=== PATIENT | male | born 1965 | race Caucasian/White ===

== ENCOUNTER 2017-01-17 05:48 | Inpatient (IN) ==
[2017-01-17] MEDS ORDERED: Insulin Regular, Human 100 UNIT/ML IV ONE (07:56)
[2017-01-17] MEDS ORDERED: Insulin Regular, Human 100 UNIT/ML IV PRN (07:56)
[2017-01-17] MEDS ORDERED: *HR* Dextrose 50 % in Water (Syg) 50 ML SYRINGE IVP PRN ×2 (07:56→23:35)
[2017-01-17 07:59] LABS: INR 1.1; Prothrombin Time 12.4 Seconds (9.4-12.1)
[2017-01-17] MEDS ORDERED: Naloxone 0.4 MG/ML INJ IVP PRN (07:59)
[2017-01-17] MEDS ORDERED: 0.9 % Sodium Chloride 1,000 ML IVC SCH (08:00)
[2017-01-17] MEDS ORDERED: Insulin Human Regular 100 UNIT in 0.9 % Sodium Chloride 100 ML IVC SCH (08:00)
[2017-01-17 08:02] LABS: Activated Partial Thrombo Time 27.2 Seconds (26.0-36.0)
[2017-01-17] MEDS ORDERED: 0.9 % Sodium Chloride 1,000 ML ONE (08:02)
[2017-01-17 08:10] LABS: Phosphorous 6.2 mg/dL (2.3-4.7)
--- NOTE | 2017-01-17 08:58 | Pulmonology History & Physical ---
<Moe Pompa M - Last Filed: 01/17/17 12:21> Date of Encounter: 01/17/17 History of Present Illness HPI: Mr. Rodríguez is a 52 year old male Medications and Allergies Atorvastatin Calcium [Lipitor] 20 mg PO DAILY 09/06/16 [History] Divalproex (12 HR) [Depakote (12 HR)] 500 mg PO BID 09/06/16 [History] Insulin ASPART [NovoLOG] 7 - 13 unit SQ TIDWM 09/06/16 [History] Insulin Glargine [Lantus] 20 units SQ DAILY 09/06/16 [History] Levothyroxine [Synthroid] 50 mcg PO DAILY 09/06/16 [History] Aspirin [Ecotrin] 325 mg PO QAM 01/17/17 [History] Quinapril HCl [Accupril] 5 mg PO QAM 01/17/17 [History] 3 Allergy/AdvReac Type Severity Reaction Status Date / Time No Known Allergies Allergy Verified 01/17/17 03:10 All Systems: A 10-system review of systems was performed and is negative for pertinent findings except as documented above in the HPI. Physical Examination Vital Signs: Vital Signs, Last 4 Hours Temp Pulse Resp BP Pulse Ox 01/17/17 12:07 97.0 F L 01/17/17 11:00 102 12 94/57 100 01/17/17 10:00 111 13 89/64 100 01/17/17 09:00 113 10 87/79 93 Results - Laboratory Findings CBC and BMP: 01/17/17 08:18 01/17/17 10:52 PT/INR, D-dimer PT 12.4 Seconds (9.4-12.1) H 01/17/17 07:47 Abnormal lab findings: Abnormal lab results WBC 12.9 K/mcL (4.3-11.1) H 01/17/17 08:18 RBC 3.65 M/mcL (4.19-5.50) L 01/17/17 08:18 Hgb 10.5 g/dL (12.9-16.9) L 01/17/17 08:18 Hct 35.5 % (37.5-50.1) L 01/17/17 08:18 MCHC 29.6 g/dL (31.6-35.5) L 01/17/17 08:18 Neutrophils # 10.4 K/mcL (1.6-8.9) H 01/17/17 08:18 PT 12.4 Seconds (9.4-12.1) H 01/17/17 07:47 VBG pH 6.98 pH Units (7.32-7.42) L* 01/17/17 09:31 VBG pCO2 30 mmHg (41-51) L 01/17/17 09:31 VBG HCO3 7 mEq/L (21-27) L 01/17/17 09:31 Carbon Dioxide 6 mEq/L (19-29) L* 01/17/17 07:47 BUN 63 mg/dL (8-26) H 01/17/17 07:47 Creatinine 3.44 mg/dL (0.72-1.25) H 01/17/17 07:47 Est GFR ( Amer) 23 (> 60) L 01/17/17 07:47 Est GFR (Non-Af Amer) 19 (> 60) L 01/17/17 07:47 Glucose 693 mg/dL (70-99) H* 01/17/17 10:52 Hemoglobin A1c 11.1 % (-5.6) H 01/17/17 07:47 Calculated Osmolality 357 (280-300) H 01/17/17 07:47 Calcium 8.0 mg/dL (8.6-10.8) L 01/17/17 07:47 Phosphorus 6.2 mg/dL (2.3-4.7) H 01/17/17 07:47 Magnesium 3.0 mg/dL (1.6-2.6) H 01/17/17 07:47 Albumin 3.1 g/dL (3.5-5.0) L 01/17/17 07:47 Albumin/Globulin Ratio 1.0 (1.1-2.2) L 01/17/17 07:47 - Attending Attestation I examined this patient and my medical decision-making was reviewed with the Resident Physician. I agree with the documented findings, disposition and treatment plan as described except to the extent set forth below. Patient seen and examined. Labs, radiology, chart personally reviewed. Agree with resident's history and physical, assessment, plan with following comments: PAYROLL SERVICES ANALYST: Patient follows commands, patient with history of seizure and with his electrolytes abnormalities that is even at higher risk of seizure happened. Pulmonary: Acceptable oxygenation and ventilation Cardiovascular: stable GI: Nutrition per dietary and GI prophylaxis per routine Heme: DVT prophylaxis per routine ID: There is no evidence of infection. Renal; urine out put and renal funtion reviewed. Patient with electrolytes abnormality secondary to DKA and severe metabolic an ion gap Acidosis and patient with dehydration. Patient needs fluid resuscitation and treatment according to the DKA protocol. I will give patient more IV fluid and clinically he has hypovolemia. Endorcine: blood glucose is monitored. Patient needs diabetic education and continue insulin drip for now. Lines: all lines checked and no evidence of infections Skin: skin care to prevent pressure ulcers per nursing routine care Patient with severe metabolic and electrolyte derangement and needs to be treated in intensive care unit due to potential serious complications from the electrolytes abnormalities. I spent 35 min of Critical Care time with this patient. It involved decision making of high complexity to assess, manipulate, and support vital organ system failure and/or to prevent further life threatening deterioration of the patient' s condition. The time involved in the performance of separately reportable procedures was not counted toward critical care time. <Fred Monet - Last Filed: 01/17/17 14:23> Date of Encounter: 01/17/17 Time of Encounter: 08:45 Assessment and Plan (1) DKA (diabetic ketoacidoses) Current visit: No Status: Acute - With glucose 1582, pH 7.00, anion gap > 35 on initial presentation. - Likely secondary to dehydration from poor oral intake and/or non-compliance with insulin use. - Improves as glucose 977 and anion gap 28 on repeat. - Continue IV insulin drip and IV fluid per DKA protocol. - NPO for now. - Monitor closely. Qualifiers: Diabetes mellitus type: type 1 Diabetes mellitus complication detail: without coma Qualified Code(s): E10.10 - Type 1 diabetes mellitus with ketoacidosis without coma (2) Acute renal failure Current visit: No Status: Acute - SCr 4.21 / eGFR 15 on initial presentation (baseline SCR 1.11 / eGFR > 60 on ). - Likely pre-renal with dehydration associated with DKA. - Improves as Scr 3.44 / eGFR 19 on repeat. - Continue hydration with IV fluid. - Avoid nephrotoxin. - Continue to monitor renal function and electrolytes closely. Qualifiers: Acute renal failure type: unspecified Qualified Code(s): N17.9 - Acute kidney failure, unspecified (3) Hyperkalemia Current visit: No Status: Acute - K 8.0 on initial presentation. - Likely secondary to current DKA and CASSANDRA. - Improves as K 4.2 on repeat. - Continue hydration with IV fluid and close monitoring. (4) Diabetes mellitus type 1 Current visit: Yes Status: Chronic - With insulin on home medication list. - Poorly controlled given Hgb A1C 11.1. Qualifiers: Diabetes mellitus complication status: with unspecified complications Qualified Code(s): E10.8 - Type 1 diabetes mellitus with unspecified complications (5) Hypothyroidism Current visit: Yes Status: Acute - Will check thyroid cascade. - Continue home dose Synthroid. Qualifiers: Hypothyroidism type: acquired Qualified Code(s): E03.9 - Hypothyroidism, unspecified (6) Hypertension Current visit: Yes Status: Chronic - Hold home dose Quinapril given current hypotension. Qualifiers: Hypertension type: essential hypertension Qualified Code(s): I10 - Essential (primary) hypertension (7) History of seizure disorder Current visit: Yes Status: Chronic - History of multiple brain surgeries including LIGHT BULB ASSEMBLER shunt. - Will resume home dose Depakote. (8) Bedbug bite Current visit: No Status: Acute Qualifiers: Encounter type: initial encounter Qualified Code(s): W57.XXXA - Bitten or stung by nonvenomous insect and other nonvenomous arthropods, initial encounter (9) DVT prophylaxis Current visit: Yes Status: Acute - Start SQ heparin. GI Prophylaxis: Start PPI. History of Present Illness Chief complaint: "feeling sick" HPI: Mr. Rodríguez is a 52 year old male with PMH of type I diabetes on chronic insulin, seizure disorder with history of multiple brain surgeries including LIGHT BULB ASSEMBLER shunt and MRDD. Patient presented to [facility] ED for "feeling sick" including nausea and nonproductive cough for past few days. Patient denies fever, chills, chest pain , shortness of breath, abdominal pain. Patient was noted to have WBC 15.3, VBG pH 7.00, K 8.0, bicarbonate < 5 with anion gap > 35, SCr 4.21 and glucose 1582. Patient is admitted to [facility] ICU for severe DKA. Past Med Surg Social Fam HX - Past Medical History Medical history: diabetes (Type I), seizures, other (MRDD) Psychiatric history: no psych history - Past Surgical History Surgical History: other (Multiple brain surgeries including LIGHT BULB ASSEMBLER shunt) - Social History Smoking Status: Never smoker Smokeless Tobacco Status: No Alcohol use: none Drug use: none - Family History Father Hx Family Cardiac Disorders: Yes Hx Family Respiratory Disorders: Yes (Asthma) Mother Hx Family Cancer: Yes All Systems: A 10-system review of systems was performed and is negative for pertinent findings except as documented above in the HPI. - Constitutional Constitutional: anorexia, no chills, no fever(s) - EENT Eyes: no loss of peripheral vision Ears: no decreased hearing Nose, mouth and throat: no dysphagia - Cardiovascular Cardiovascular: no chest pain, no diaphoresis, no edema - Respiratory Respiratory: cough, no dyspnea, no excessive phlegm production, no change in phlegm color - Gastrointestinal Gastrointestinal: nausea, no abdominal pain, no diarrhea, no vomiting - Genitourinary Genitourinary: no difficulty urinating, no dysuria, no hematuria - Musculoskeletal Musculoskeletal: no arthralgias, no myalgias - Integumentary Integumentary: no erythema, no rash - Neurological Neurological: no focal weakness, no numbness, no tingling - Hematologic/Lymphatic Hematologic/Lymphatic: no easy bleeding, no easy bruising Physical Examination General appearance: no acute distress Eyes: nonicteric ENT: oropharynx dry Neck: supple Effort: normal Inspection: normal Auscultation: bilateral: clear Cardiovascular: other (Tachycardia) Gastrointestinal: normoactive bowel sounds, soft, non-tender Integumentary: normal Extremities: no cyanosis, no edema Musculoskeletal: no deformities normal mental status, non-focal exam mood appropriate, affect normal Results - Laboratory Findings CBC and BMP: 01/17/17 08:18 01/17/17 12:05 PT/INR, D-dimer PT 12.4 Seconds (9.4-12.1) H 01/17/17 07:47 Abnormal lab findings: Abnormal lab results PT 12.4 Seconds (9.4-12.1) H 01/17/17 07:47 Phosphorus 6.2 mg/dL (2.3-4.7) H 01/17/17 07:47 Magnesium 3.0 mg/dL (1.6-2.6) H 01/17/17 07:47
[2017-01-17 09:15] LABS: Basophils % 0.2 %; Hematocrit 35.5 % (37.5-50.1); Hemoglobin 10.5 g/dL (12.9-16.9); Immature Granulocytes % 0.9 % (0-4); Immature Platelets 4.5 % (1.1-6.1); Lymphocytes # 1.1 K/mcL (0.6-4.6); Lymphocytes % 8.8 %; Mean Corpuscular HGB Conc 29.6 g/dL (31.6-35.5); Mean Corpuscular Hemoglobin 28.8 pg (28.0-33.3); Mean Corpuscular Volume 97.3 fL (83.0-100.0); Mean Platelet Volume 11.3 fL (9.4-12.4); Monocytes # 1.3 K/mcL (0.0-1.3); Monocytes % 9.7 %; Neutrophils # 10.4 K/mcL (1.6-8.9); Platelet Count 229 K/mcL (140-400); Red Blood Count 3.65 M/mcL (4.19-5.50); Red Cell Distribution Width 13.8 % (11.5-14.5); Segmented Neutrophils % 80.4 %
[2017-01-17 09:35] LABS: VBG HCO3 7 mEq/L (21-27); VBG PCO2 30 mmHg (41-51); VBG PH 6.98 pH Units (7.32-7.42); VBG PO2 44 mmHg (25-50)
[2017-01-17 09:38] LABS: Hemoglobin A1C 11.1 %
[2017-01-17 09:43] LABS: VBG Ionized Calcium 1.16 mmol/L (1.15-1.35)
[2017-01-17 10:24] LABS: Albumin 3.1 g/dL (3.5-5.0); Bilirubin,Total 0.5 mg/dL (0.2-1.2); Globulin 3.1 g/dL (2.4-3.5); Potassium 4.2 mEq/L (3.5-4.5); Total Protein 6.2 g/dL (6.0-8.3)
[2017-01-17] MEDS: 0.45 % Sodium Chloride w/KCl 20 MEQ/1,000 ML MLS IVC SCH ×2 (13:34→18:07)
--- NOTE | 2017-01-17 14:42 | General Surgery Consult Note ---
Date of Encounter: 01/17/17 Time of Encounter: 14:41 Assessment and Plan (1) LGI bleed Current Visit: Yes Status: Acute 52M with LGIB complicated by multiple falls, weakness; currently hemodynamically stable - NPO - IVF - trend h/h - hold anticoagulation - transfuse per ICU protocol - once more lucid, or after talking with POA, will discuss concerning EGD and C- scope - no acute surgery at present History of Present Illness Consult date: 01/17/17 Reason for consult: other (lower GI bleeding) History of present illness: 52M h/o afib on xarelto?, hypothyroidism, HLD, hemorrhoids who presents with LGIB. All history obtained from . The patient reportedly has had multiple episodes of falling 2/2 weakness, especially in his legs. No reports of chest pain nor shortness of breath. ~ 1-2 days prior to admission the patient had a large amount of blood in his stool. He was subsequently brought to the ED for further evaluation. Past Med Surg Social Fam HX - Past Medical History Medical history: diabetes (Type I), seizures, other (MRDD) Psychiatric history: no psych history - Past Surgical History Surgical History: other (Multiple brain surgeries including SHOE ASSOCIATE shunt) - Social History Smoking Status: Never smoker Smokeless Tobacco Status: No Alcohol use: none Drug use: none - Family History Father Hx Family Cardiac Disorders: Yes Hx Family Respiratory Disorders: Yes (Asthma) Mother Hx Family Cancer: Yes Medications and Allergies Atorvastatin Calcium [Lipitor] 20 mg PO DAILY 09/06/16 [History] Divalproex (12 HR) [Depakote (12 HR)] 500 mg PO BID 09/06/16 [History] Insulin ASPART [NovoLOG] 7 - 13 unit SQ TIDWM 09/06/16 [History] Insulin Glargine [Lantus] 20 units SQ DAILY 09/06/16 [History] Levothyroxine [Synthroid] 50 mcg PO DAILY 09/06/16 [History] Aspirin [Ecotrin] 325 mg PO QAM 01/17/17 [History] Quinapril HCl [Accupril] 5 mg PO QAM 01/17/17 [History] 3 Allergy/AdvReac Type Severity Reaction Status Date / Time No Known Allergies Allergy Verified 01/17/17 03:10 Review of Systems All systems PM: A 10-system review of systems was performed and is negative for pertinent findings except as documented above in the HPI. General Surgery Exam Initial Vital Signs Temp Pulse Resp BP Pulse Ox 96.0 F L 113 19 70/44 100 01/17/17 07:30 01/17/17 07:30 01/17/17 07:30 01/17/17 07:30 01/17/17 07:30 - General physical appearance other (minimally responsive) - ENT normocephalic - Neck no lymphadectomy - Respiratory normal expansion, normal respiratory effort - Cardiovascular Cardiovascular exam: Present: RRR - Abdomen Abdomen general surgery: Present: soft, non tender - Genitourinary Present: normal penis with no external lesions - Rectum Rectum: Present: normal sphincter tone, no hemorrhoids, no tenderness, no masses , no bleeding - Integumentary Integumentary general surgery: Present: warm and dry - Neurologic Present: CN 2-12 grossly intact (GCS ~ 11 (E:3, V:3, M:5) ) - Psychiatric Psychiatric general surgery: Present: other Exam Initial Vital Signs Temp Pulse Resp BP Pulse Ox 96.0 F L 113 19 70/44 100 01/17/17 07:30 01/17/17 07:30 01/17/17 07:30 01/17/17 07:30 01/17/17 07:30 Results - Labs 01/17/17 08:18 01/17/17 12:05 Abnormal lab results WBC 12.9 K/mcL (4.3-11.1) H 01/17/17 08:18 RBC 3.65 M/mcL (4.19-5.50) L 01/17/17 08:18 Hgb 10.5 g/dL (12.9-16.9) L 01/17/17 08:18 Hct 35.5 % (37.5-50.1) L 01/17/17 08:18 MCHC 29.6 g/dL (31.6-35.5) L 01/17/17 08:18 Neutrophils # 10.4 K/mcL (1.6-8.9) H 01/17/17 08:18 PT 12.4 Seconds (9.4-12.1) H 01/17/17 07:47 VBG pH 6.98 pH Units (7.32-7.42) L* 11/26/17 09:31 VBG pCO2 30 mmHg (41-51) L 01/17/17 09:31 VBG HCO3 7 mEq/L (21-27) L 01/17/17 09:31 Carbon Dioxide 6 mEq/L (19-29) L* 01/17/17 07:47 BUN 63 mg/dL (8-26) H 01/17/17 07:47 Creatinine 3.44 mg/dL (0.72-1.25) H 01/17/17 07:47 Est GFR ( Amer) 23 (> 60) L 01/17/17 07:47 Est GFR (Non-Af Amer) 19 (> 60) L 01/17/17 07:47 Glucose 604 mg/dL (70-99) H* 01/17/17 12:05 Hemoglobin A1c 11.1 % (-5.6) H 01/17/17 07:47 Calculated Osmolality 357 (280-300) H 01/17/17 07:47 Calcium 8.0 mg/dL (8.6-10.8) L 01/17/17 07:47 Phosphorus 6.2 mg/dL (2.3-4.7) H 01/17/17 07:47 Magnesium 3.0 mg/dL (1.6-2.6) H 01/17/17 07:47 Albumin 3.1 g/dL (3.5-5.0) L 01/17/17 07:47 Albumin/Globulin Ratio 1.0 (1.1-2.2) L 01/17/17 07:47 Diabetes panel 01/17/17 01/17/17 01/17/17 Range/Units 07:47 07:47 10:52 Sodium 140 D (136-145) mEq/L Potassium 4.2 D (3.5-4.5) mEq/L Chloride 106 D (98-109) mEq/L Carbon Dioxide 6 L* (19-29) mEq/L BUN 63 H (8-26) mg/dL Creatinine 3.44 H (0.72-1.25) mg/dL Glucose 977 H* 693 H* (70-99) mg/dL Hemoglobin A1c 11.1 H ( - 5.6) % Calcium 8.0 L (8.6-10.8) mg/dL AST 11 (5-34) Units/L ALT 13 (0-55) Units/L Alkaline Phosphatase 61 (38-126) Units/L Albumin 3.1 L (3.5-5.0) g/dL 01/17/17 Range/Units 12:05 Sodium (136-145) mEq/L Potassium (3.5-4.5) mEq/L Chloride (98-109) mEq/L Carbon Dioxide (19-29) mEq/L BUN (8-26) mg/dL Creatinine (0.72-1.25) mg/dL Glucose 604 H* (70-99) mg/dL Hemoglobin A1c ( - 5.6) % Calcium (8.6-10.8) mg/dL AST (5-34) Units/L ALT (0-55) Units/L Alkaline Phosphatase (38-126) Units/L Albumin (3.5-5.0) g/dL Calcium panel 01/17/17 01/17/17 Range/Units 07:47 07:47 Calcium 8.0 L (8.6-10.8) mg/dL Phosphorus 6.2 H (2.3-4.7) mg/dL Albumin 3.1 L (3.5-5.0) g/dL Pituitary panel 01/17/17 01/17/17 01/17/17 Range/Units 07:47 10:52 12:05 Sodium 140 D (136-145) mEq/L Potassium 4.2 D (3.5-4.5) mEq/L Chloride 106 D (98-109) mEq/L Carbon Dioxide 6 L* (19-29) mEq/L BUN 63 H (8-26) mg/dL Creatinine 3.44 H (0.72-1.25) mg/dL Glucose 977 H* 693 H* 604 H* (70-99) mg/dL Calcium 8.0 L (8.6-10.8) mg/dL Adrenal panel 01/17/17 01/17/17 01/17/17 Range/Units 07:47 10:52 12:05 Sodium 140 D (136-145) mEq/L Potassium 4.2 D (3.5-4.5) mEq/L Chloride 106 D (98-109) mEq/L Carbon Dioxide 6 L* (19-29) mEq/L BUN 63 H (8-26) mg/dL Creatinine 3.44 H (0.72-1.25) mg/dL Glucose 977 H* 693 H* 604 H* (70-99) mg/dL Calcium 8.0 L (8.6-10.8) mg/dL Total Bilirubin 0.5 (0.2-1.2) mg/dL AST 11 (5-34) Units/L ALT 13 (0-55) Units/L Alkaline Phosphatase 61 (38-126) Units/L Albumin 3.1 L (3.5-5.0) g/dL All other labs normal. Consult Discharge Plan - Plan Referrals: NONE,PCP [Primary Care Provider] -
[2017-01-17] MEDS: *HR* Heparin 5,000 UNIT/ML VIAL SQ SCH (18:08)
[2017-01-17] MEDS ORDERED: Insulin DETEMIR 100 UNIT/ML X5UNITS SQ ONE (18:54)
[2017-01-17 19:28] LABS: Calcium 7.9 mg/dL (8.6-10.8); Potassium 4.4 mEq/L (3.5-4.5)
[2017-01-17] MEDS: Divalproex (12 HR) 500 MG TABLET PO SCH (21:00)
[2017-01-17 22:15] LABS: Calcium 8.3 mg/dL (8.6-10.8); Potassium 4.6 mEq/L (3.5-4.5)
[2017-01-17] MEDS ORDERED: D5% in Water 1,000 ML IVC PRN (23:35)
[2017-01-17] MEDS ORDERED: Dextrose Gel 15 GM PO PRN ×2 (23:35)
[2017-01-18] MEDS: 0.45 % Sodium Chloride w/KCl 20 MEQ/1,000 ML MLS IVC SCH ×3 (00:36→04:09)
[2017-01-18] MEDS: D5% in 0.45% NACL w KCl 10 MEQ/1,000 ML MLS IVC SCH ×2 (00:36→03:14)
[2017-01-18 03:45] LABS: Basophils % 0.3 %; Eosinophils # 0.2 K/mcL (0.0-0.6); Eosinophils % 2.2 %; Hematocrit 32.7 % (37.5-50.1); Hemoglobin 10.9 g/dL (12.9-16.9); Immature Granulocytes % 0.4 % (0-4); Lymphocytes # 1.4 K/mcL (0.6-4.6); Lymphocytes % 15.5 %; Mean Corpuscular HGB Conc 33.3 g/dL (31.6-35.5); Mean Corpuscular Hemoglobin 29.1 pg (28.0-33.3); Mean Platelet Volume 10.6 fL (9.4-12.4); Monocytes # 1.3 K/mcL (0.0-1.3); Monocytes % 14.3 %; Platelet Count 168 K/mcL (140-400); Red Blood Count 3.74 M/mcL (4.19-5.50); Red Cell Distribution Width 14.9 % (11.5-14.5); Segmented Neutrophils % 67.3 %
[2017-01-18 03:51] LABS: Mean Corpuscular Volume 87.4 fL (83.0-100.0)
[2017-01-18 04:08] LABS: Calcium 8.7 mg/dL (8.6-10.8); Magnesium 2.4 mg/dL (1.6-2.6); Potassium 4.4 mEq/L (3.5-4.5)
[2017-01-18 04:20] LABS: Phosphorous 2.3 mg/dL (2.3-4.7)
[2017-01-18 05:05] LABS: Thyroid Stimulating Hormone 13.994 mcIU/mL (0.350-4.840)
[2017-01-18] MEDS: *HR* Heparin 5,000 UNIT/ML VIAL SQ SCH ×2 (05:05→18:22)
[2017-01-18] MEDS ORDERED: Insulin LISPRO 300 UNITS/3 ML VIAL SQ SCH ×2 (07:30→08:00)
[2017-01-18] MEDS: Divalproex (12 HR) 500 MG TABLET PO SCH ×2 (08:02→22:48)
[2017-01-18] MEDS ORDERED: Aspirin Enteric Coated 325 MG Tablet PO SCH (09:00)
[2017-01-18] MEDS ORDERED: Pantoprazole 40 MG VIAL IVP SCH (09:00)
--- NOTE | 2017-01-18 09:29 | Pulmonology Progress Note ---
<Patricia Chavez Aydin - Last Filed: 01/18/17 17:27> Date of Encounter: 01/18/17 Time of Encounter: 09:28 Assessment and Plan (1) DKA (diabetic ketoacidoses) Current Visit: Yes Status: Acute Patient with a glucose of 1582, pH 7.0, and anion gap of greater than 35 on initial presentation. -Patient was hydrated and resuscitated. -The anion gap was 7 this morning. -DC IV insulin drip and IV fluid per DKA protocol. -Advance diet as tolerated, start detemir 20 units every at bedtime which is an increase from his at home dose. -10 units of lispro before meals plus sliding scale coverage. -Transferred to [facility]. Qualifiers: Diabetes mellitus type: type 1 Diabetes mellitus complication detail: without coma Qualified Code(s): E10.10 - Type 1 diabetes mellitus with ketoacidosis without coma (2) Acute renal failure Current Visit: Yes Status: Acute Improving with creatinine of 1.76 today down from 3.44 yesterday. -Continue IV fluid hydration. -Avoid nephrotoxins. -Continue to monitor renal function and electrolytes closely. -Continue holding DANIEL-I as patient's blood pressure has been borderline low. Qualifiers: Acute renal failure type: unspecified Qualified Code(s): N17.9 - Acute kidney failure, unspecified (3) Hyperkalemia Current Visit: Yes Status: Acute Resolved. -Continue hydration with IV fluids and close monitoring with follow-up BMP in the morning. (4) Bed bug bite Current Visit: Yes Status: Acute Appropriate contact precautions. Qualifiers: Encounter type: initial encounter Qualified Code(s): W57.XXXA - Bitten or stung by nonvenomous insect and other nonvenomous arthropods, initial encounter (5) Diabetes mellitus type 1 Current Visit: Yes Status: Chronic Patient's hemoglobin A1c 11.1. -Patient with right-sided blindness as well as chronic renal failure. -Insulin adjustments as per above. Qualifiers: Diabetes mellitus complication status: with unspecified complications Qualified Code(s): E10.8 - Type 1 diabetes mellitus with unspecified complications (6) Hypothyroidism Current Visit: Yes Status: Acute Continue home dose Synthroid. Qualifiers: Hypothyroidism type: acquired Qualified Code(s): E03.9 - Hypothyroidism, unspecified (7) Hypertension Current Visit: Yes Status: Chronic Daniel inhibitor quinapril being held due to patient's kidney injury and its borderline hypotension. -Resume primary team once transfer out of the ICU. Qualifiers: Hypertension type: essential hypertension Qualified Code(s): I10 - Essential (primary) hypertension (8) History of seizure disorder Current Visit: Yes Status: Chronic -Patient with history of multiple brain surgeries including LINE THERAPIST shunt. -Resume home dose of Depakote. (9) DVT prophylaxis Current Visit: Yes Status: Acute Subcutaneous heparin. Subjective Principal diagnosis: DKA Interval history: Mr. Sullivan is a 52-year-old male admitted for diabetic ketoacidosis. His gap has resolved. Patient's insulin drip has been discontinued. He is handling by mouth nutrition and hydration. He has no complaints this morning. He is stable for transfer to [address] [place] [address]. Objective PUL Vital signs: Last Vital Signs Temp 99.8 F H 01/18/17 08:00 Pulse 86 01/18/17 08:00 Resp 20 01/18/17 08:00 BP 95/62 01/18/17 08:00 Pulse Ox 100 01/18/17 09:00 General appearance: no acute distress, alert Eyes: nonicteric ENT: oropharynx moist Neck: supple Auscultation: bilateral: clear Cardiovascular: regular rate and rhythm Gastrointestinal: normoactive bowel sounds Integumentary: normal Extremities: no edema, no clubbing, pink and warm Gait: normal gait other (Patient with bilateral nystagmus, right eye worse than left.) Results - Laboratory Findings CBC and BMP: 01/18/17 03:21 01/18/17 03:21 PT/INR, D-dimer PT 12.4 Seconds (9.4-12.1) H 01/17/17 07:47 Abnormal lab findings: Abnormal lab results RBC 3.74 M/mcL (4.19-5.50) L 01/18/17 03:21 Hgb 10.9 g/dL (12.9-16.9) L 01/18/17 03:21 Hct 32.7 % (37.5-50.1) L 01/18/17 03:21 RDW 14.9 % (11.5-14.5) H 01/18/17 03:21 PT 12.4 Seconds (9.4-12.1) H 01/17/17 07:47 VBG pH 6.98 pH Units (7.32-7.42) L* 01/17/17 09:31 VBG pCO2 30 mmHg (41-51) L 01/17/17 09:31 VBG HCO3 7 mEq/L (21-27) L 01/17/17 09:31 Sodium 147 mEq/L (136-145) H 01/18/17 03:21 Chloride 118 mEq/L (98-109) H 01/18/17 03:21 BUN 33 mg/dL (8-26) H 01/18/17 03:21 Creatinine 1.76 mg/dL (0.72-1.25) H 01/18/17 03:21 Est GFR ( Amer) 49 (> 60) L 01/18/17 03:21 Est GFR (Non-Af Amer) 41 (> 60) L 01/18/17 03:21 POC Glucose 115 (58-89) H 01/18/17 00:29 Hemoglobin A1c 11.1 % (-5.6) H 01/17/17 07:47 Calculated Osmolality 310 (280-300) H 01/18/17 03:21 Albumin 3.1 g/dL (3.5-5.0) L 01/17/17 07:47 Albumin/Globulin Ratio 1.0 (1.1-2.2) L 01/17/17 07:47 TSH 13.994 mcIU/mL (0.350-4.840) H 01/18/17 03:21 - Clinical Findings Intake & Output: Intake & Output 01/17/17 01/18/17 01/18/17 23:59 07:59 15:59 Intake Total 2019.4 / 2019.4 720 / 720 Output Total 350 / 350 450 / 450 175 / 175 Balance 1669.4 / 1669.4 -450 / -450 545 / 545 Weight 69.7 kg Consult Discharge Plan - Plan Referrals: NONE,PCP [Primary Care Provider] - <Esther Ferreira - Last Filed: 01/18/17 19:55> Date of Encounter: 01/18/17 Objective PUL Vital signs: Last Vital Signs Temp 98.0 F 01/18/17 16:00 Pulse 82 01/18/17 16:36 Resp 16 01/18/17 16:36 BP 87/52 01/18/17 16:36 Pulse Ox 95 01/18/17 16:36 Results - Laboratory Findings CBC and BMP: 01/18/17 03:21 01/18/17 03:21 PT/INR, D-dimer PT 12.4 Seconds (9.4-12.1) H 01/17/17 07:47 Abnormal lab findings: Abnormal lab results RBC 3.74 M/mcL (4.19-5.50) L 01/18/17 03:21 Hgb 10.9 g/dL (12.9-16.9) L 01/18/17 03:21 Hct 32.7 % (37.5-50.1) L 01/18/17 03:21 RDW 14.9 % (11.5-14.5) H 01/18/17 03:21 PT 12.4 Seconds (9.4-12.1) H 01/17/17 07:47 VBG pH 6.98 pH Units (7.32-7.42) L* 01/17/17 09:31 VBG pCO2 30 mmHg (41-51) L 01/17/17 09:31 VBG HCO3 7 mEq/L (21-27) L 01/17/17 09:31 Sodium 147 mEq/L (136-145) H 01/18/17 03:21 Chloride 118 mEq/L (98-109) H 01/18/17 03:21 BUN 33 mg/dL (8-26) H 01/18/17 03:21 Creatinine 1.76 mg/dL (0.72-1.25) H 01/18/17 03:21 Est GFR ( Amer) 49 (> 60) L 01/18/17 03:21 Est GFR (Non-Af Amer) 41 (> 60) L 01/18/17 03:21 POC Glucose 115 (58-89) H 01/18/17 00:29 Hemoglobin A1c 11.1 % (-5.6) H 01/17/17 07:47 Calculated Osmolality 310 (280-300) H 01/18/17 03:21 Albumin 3.1 g/dL (3.5-5.0) L 01/17/17 07:47 Albumin/Globulin Ratio 1.0 (1.1-2.2) L 01/17/17 07:47 TSH 13.994 mcIU/mL (0.350-4.840) H 01/18/17 03:21 - Clinical Findings Intake & Output: Intake & Output 01/18/17 01/18/17 01/18/17 07:59 15:59 23:59 Intake Total 720 / 720 Output Total 450 / 450 275 / 275 Balance -450 / -450 445 / 445 Weight 69.7 kg 69.3 kg - Attending Attestation I saw the patient with the resident agree with History and Physical exam findings. Labs and Radiology were reviewed PROCESS DEVELOPMENT ENGINEER: Patient is conscious oriented x3 following commands NECK : No JVD appreciated Pulmonary : Patient doesnt have any acute pulmonary issues Cardiac : Volume depleted secondary to DKA , volume repleted , patient BP is borderline Nutrition/GI: Patient is on Diabetic regular diet Renal : CASSANDRA secondary to Volume repletion improving after volume repletion Heme onc : No acute issues Endo: Diabetic ketoacidosis Anion gap closed twice changing to Long acting insulin , pre meal insulin and sliding scale Musculo skeletal / skin issues : No acute issues Disposition : Transfer to General medical floor report called to admitting hospitalist . Code status: Full Code
[2017-01-18] MEDS ORDERED: Dextrose Gel 15 GM PO PRN ×2 (10:07)
[2017-01-18] MEDS ORDERED: D5% in Water 1,000 ML IVC PRN (10:07)
[2017-01-18] MEDS ORDERED: *HR* Dextrose 50 % in Water (Syg) 50 ML SYRINGE IVP PRN (10:07)
[2017-01-18] MEDS ORDERED: Naloxone 0.4 MG/ML INJ IVP PRN (10:07)
[2017-01-18] MEDS: Insulin LISPRO 300 UNITS/3 ML VIAL SQ SCH ×5 (12:19→22:55)
[2017-01-18] MEDS ORDERED: Insulin DETEMIR 100 UNIT/ML X5UNITS SQ SCH ×2 (21:00)
[2017-01-19] MEDS ORDERED: 0.9 % Sodium Chloride 250 ML IVC ONE (01:03)
[2017-01-19] MEDS ORDERED: 0.9 % Sodium Chloride 250 ML IVC PRN (02:40)
[2017-01-19] MEDS ORDERED: 0.9 % Sodium Chloride 250 ML ONE (02:48)
[2017-01-19] MEDS: Insulin LISPRO 300 UNITS/3 ML VIAL SQ SCH ×7 (06:30→17:21)
[2017-01-19] MEDS: *HR* Heparin 5,000 UNIT/ML VIAL SQ SCH ×2 (06:34→17:23)
[2017-01-19 07:46] LABS: Basophils % 0.5 %; Eosinophils # 0.2 K/mcL (0.0-0.6); Eosinophils % 2.4 %; Hematocrit 28.6 % (37.5-50.1); Hemoglobin 9.8 g/dL (12.9-16.9); Immature Granulocytes % 0.3 % (0-4); Lymphocytes # 2.2 K/mcL (0.6-4.6); Lymphocytes % 33.3 %; Mean Corpuscular HGB Conc 34.3 g/dL (31.6-35.5); Mean Corpuscular Hemoglobin 29.5 pg (28.0-33.3); Mean Corpuscular Volume 86.1 fL (83.0-100.0); Mean Platelet Volume 10.6 fL (9.4-12.4); Monocytes # 0.6 K/mcL (0.0-1.3); Monocytes % 9.8 %; Neutrophils # 3.5 K/mcL (1.6-8.9); Platelet Count 119 K/mcL (140-400); Red Blood Count 3.32 M/mcL (4.19-5.50); Red Cell Distribution Width 15.7 % (11.5-14.5); Segmented Neutrophils % 53.7 %
[2017-01-19 08:15] LABS: BUN/Creatinine Ratio 12 (6-26); Calcium 8.1 mg/dL (8.6-10.8); Carbon Dioxide 22 mEq/L (19-29); Chloride 111 mEq/L (98-109); Glucose 119 mg/dL (70-99); Osmolality,Calculated 295 (280-300); Potassium 3.9 mEq/L (3.5-4.5); Sodium 142 mEq/L (136-145); eGFR For African Americans > 60 (> 60); eGFR For Non-African Americans > 60 (> 60)
[2017-01-19 08:23] LABS: Blood Urea Nitrogen 13 mg/dL (8-26)
[2017-01-19] MEDS ORDERED: Pantoprazole 40 MG VIAL IVP SCH (09:00)
[2017-01-19] MEDS ORDERED: Aspirin Enteric Coated 325 MG Tablet PO SCH (09:00)
[2017-01-19] MEDS ORDERED: Levothyroxine 25 MCG TABLET PO ONE (09:15)
[2017-01-19] MEDS: Divalproex (12 HR) 500 MG TABLET PO SCH (09:54)
[2017-01-19 11:32] VITALS: BP 110/81
--- NOTE | 2017-01-19 11:37 | Discharge Summary ---
Date of Encounter: 01/19/17 Time of Encounter: 09:35 - Discharge Diagnosis (1) DKA (diabetic ketoacidoses) Priority: Primary Status: Acute Qualifiers: Diabetes mellitus type: type 1 Diabetes mellitus complication detail: without coma Qualified Code(s): E10.10 - Type 1 diabetes mellitus with ketoacidosis without coma (2) Acute renal failure Priority: Secondary Status: Acute Qualifiers: Acute renal failure type: with other specified pathological lesion Qualified Code(s): N17.8 - Other acute kidney failure (3) Bed bug bite Priority: Secondary Status: Acute Qualifiers: Encounter type: initial encounter Qualified Code(s): W57.XXXA - Bitten or stung by nonvenomous insect and other nonvenomous arthropods, initial encounter (4) Diabetes mellitus type 1 Priority: Secondary Status: Chronic Qualifiers: Diabetes mellitus complication status: with ketoacidosis Diabetes mellitus complication detail: without coma Qualified Code(s): E10.10 - Type 1 diabetes mellitus with ketoacidosis without coma (5) DVT prophylaxis Priority: Secondary Status: Acute (6) History of seizure disorder Priority: Secondary Status: Chronic (7) Hyperkalemia Priority: Secondary Status: Resolved (8) Hypothyroidism Priority: Secondary Status: Chronic Qualifiers: Hypothyroidism type: acquired Qualified Code(s): E03.9 - Hypothyroidism, unspecified - Discharge Medications Prescriptions: Blood Sugar Diagnostic, Drum [Accu-Chek Compact] 1 each ACHS #120 strip Blood-Glucose Meter, Drum-Type [Accu-Chek] 1 each ACHS #1 kit Lancets 1 each ACHS #120 each Home Medications: Atorvastatin Calcium [Lipitor] 20 mg PO DAILY 09/06/16 [History] Divalproex (12 HR) [Depakote (12 HR)] 500 mg PO BID 09/06/16 [History] Insulin ASPART [NovoLOG] 7 - 13 unit SQ TIDWM 09/06/16 [History] Insulin Glargine [Lantus] 20 units SQ DAILY 09/06/16 [History] Levothyroxine [Synthroid] 50 mcg PO DAILY 09/06/16 [History] Aspirin [Ecotrin] 325 mg PO QAM 01/17/17 [History] Quinapril HCl [Accupril] 5 mg PO QAM 01/17/17 [History] Blood Sugar Diagnostic, Drum [Accu-Chek Compact] 1 each ACHS #120 strip 01/19 [Rx] Blood-Glucose Meter, Drum-Type [Accu-Chek] 1 each ACHS #1 kit 01/19/17 [Rx] Lancets 1 each ACHS #120 each 01/19/17 [Rx] Allergies/Adverse Reactions: 3 Allergy/AdvReac Type Severity Reaction Status Date / Time No Known Allergies Allergy Verified 01/17/17 03:10 Date of admission: 01/17/17 13:07 Primary care physician: PCP NONE Consults: 01/17/17 19:37 Consult to [employer] [CONS] Routine Reason for SW Consult: discharge planning Discharging clinician: Emma Elliott Anticipated date of discharge: 01/19/17 - Patient Status Disposition: Home, Self-Care Condition: Good Functional capacity at discharge: independent ambulation Overall status at discharge: patient is progressing back to baseline - Discharge Instructions Instructions: Diabetic Ketoacidosis (DC), Diabetes Mellitus Type 2 in Adults ( DC), Chronic Hypertension (DC) Follow Up With: NONE,PCP [Primary Care Provider] - (in 1week) - Diet and Activity Activity: increase activity as tolerated Diet: advance to your usual diet, diabetic diet, low fat, low cholesterol, low salt diet Hospital course: Mr. Rodríguez is a 52 year old male patient with history of type 1 diabetes mellitus who was admitted here initially to the ICU for diabetic ketoacidosis. He was also in acute renal failure on presentation and had hyperkalemia. He was treated per the DKA protocol with IV fluids and IV insulin with improvement in his symptoms. His renal function has also improved and is back to baseline. His now doing well with oral diet and basal bolus regimen. He is clinically stable to be discharged home at this time and will follow up with his primary care provider for further management of his diabetes. He is being provided with prescription for glucometer and strips and lancets. - Time Spent with Patient Total time spent providing and/or coordinating discharge services: Less than 30 minutes (25 min) - Constitutional Vitals: Temp Pulse Resp BP Pulse Ox 97.5 F L 81 19 110/81 100 01/19/17 11:31 01/19/17 11:31 01/19/17 03:50 01/19/17 11:31 01/19/17 11:31 General appearance: Present: cooperative, A&O X 3, no acute distress, answers questions appropriately - Respiratory Respiratory exam: Present: CTAB. Absent: accessory muscle use, rales, rhonchi, wheezes - Cardiovascular Cardiovascular exam: Present: RRR, +S1, +S2. Absent: diastolic murmur, gallop, rubs, systolic murmur - GI/Abdominal GI/Abdominal exam: Present: normal bowel sounds, soft, no peritoneal signs. Absent: distended, tenderness
[2017-01-19] MEDS ORDERED: FLUARIX QUAD 2017-18 36MOS UP/PF 0.5 ML SYRINGE IM ONE (12:14)
== END 2017-01-19 18:15 | disposition home or self-care (01) | DRG 638 ==
LOC: ICNU → SUATTDRO 13:07 → 2NENU 01-18 13:20
PROVIDERS: ADMIT Internal Medicine; ATTEND Internal Medicine

== ENCOUNTER 2018-02-20 22:34 | Observation (INO) ==
[2018-02-21 02:08] LABS: Hematocrit 31.8 % (37.5-50.1); Mean Corpuscular HGB Conc 34.6 g/dL (31.6-35.5); Mean Corpuscular Hemoglobin 29.4 pg (28.0-33.3); Mean Platelet Volume 10.8 fL (9.4-12.4); Platelet Count 190 K/mcL (140-400); Red Blood Count 3.74 M/mcL (4.19-5.50); Red Cell Distribution Width 12.6 % (11.5-14.5)
[2018-02-21] MEDS ORDERED: D5% in 0.45% NACL w KCl 20 MEQ/1,000 ML MLS IVC ONE (02:08)
[2018-02-21 02:28] LABS: Alanine Aminotransferase 11 Units/L (7-52); Albumin 4.3 g/dL (3.5-5.7); Albumin/Globulin Ratio 1.7 (1.1-2.2); Alkaline Phosphatase 93 Units/L (34-104); Aspartate Amino Transferase 9 Units/L (13-39); BUN/Creatinine Ratio 14 (6-26); Bilirubin,Total 0.4 mg/dL (0.3-1.0); Blood Urea Nitrogen 14 mg/dL (6-20); Calcium 10.3 mg/dL (8.6-10.3); Carbon Dioxide 25 mEq/L (23-29); Chloride 109 mEq/L (98-107); Globulin 2.5 g/dL (2.4-3.5); Glucose 251 mg/dL (70-105); Osmolality,Calculated 303 (280-300); Potassium 3.7 mEq/L (3.5-5.1); Sodium 142 mEq/L (136-145); Total Protein 6.8 g/dL (6.4-8.9); eGFR For Non-African Americans > 60 (> 60)
[2018-02-21] MEDS ORDERED: D5% in 0.45% NACL w KCl 20 MEQ/1,000 ML MLS IVC PRN (02:28)
[2018-02-21] MEDS ORDERED: Insulin Regular, Human 100 UNIT/ML IV PRN ×2 (02:28)
[2018-02-21] MEDS ORDERED: D5% in 0.45% NACL 1,000 ML IVC PRN (02:28)
[2018-02-21] MEDS ORDERED: *HR* Dextrose 50 % in Water (Syg) 50 ML SYRINGE IVP PRN (02:28)
[2018-02-21] MEDS ORDERED: Insulin Human Regular 100 UNIT in 0.9 % Sodium Chloride 100 ML IVC SCH (02:30)
[2018-02-21] MEDS ORDERED: 0.45 % Sodium Chloride w/KCl 20 MEQ/1,000 ML MLS IVC PRN (02:30)
[2018-02-21] MEDS ORDERED: Naloxone 0.4 MG/ML INJ IVP PRN (02:46)
[2018-02-21] MEDS ORDERED: Acetaminophen 325 MG TABLET PO PRN (02:46)
--- NOTE | 2018-02-21 02:52 | Internal Med History&Physical ---
<Terry Roach - Last Filed: 02/21/18 03:16> Date of Encounter: 02/21/18 Time of Encounter: 02:52 Internal Medicine - H&P: HPI Chief complaint: AMS Admitted From: Hospital to Hospital Transfer Plans for Post Hospital Care: Home History of present illness: Mr. Rodríguez is a 53 year old male with past medical history of type 1 diabetes, seizure disorder, hypertension, hyperlipidemia, blindness who presented from [facility] to [facility] emergency room due to concerns for high glucose. Upon arrival to [facility] ED, patient was altered and not able to chest pain history. Per EMS report, he drank a lot of Baltazar-Aid today. Patient has had multiple admissions for hyperglycemia in the past. Upon my interview, patient states that he does not recall why he originally presented to the emergency room. He states that he is supposed to check his blood sugars 3 times daily but does not elaborate if he is compliant with this. He states his blood sugars normally run in the 3 to 400s and are sometimes unreadable on his glucometer. He also states that he "gets into the sugars ". He does deny any symptoms of fevers, chills, chest pain, cough, nausea, vomiting. He does state that he has been a little bit short of breath recently. He denies any pulmonary history, edema, orthopnea. Upon arrival to [facility] emergency room, vital signs are significant for heart rate of 90, otherwise within normal limits. Laboratory results include a unremarkable CBC, ABG with pH of 7.36, within normal limits CO2 of 42 and bi carbonate of 24. Initial glucose on presentation of 1133, sodium 129, chloride 90, I carbonate 23, lactic acid of 7.7. Beta hydroxybutyric acid within normal limits at 0.16, urine had 500 of glucose in it. He received a push dose of insulin as well as fluids and transferred to [facility] for further evaluation and management. Most recent labs on recent dictation to [facility] show glucose down to 251, lactic acid down trending to 4.1. Potassium was at 3.7. Past medical history as above Past surgical history: Brain Shunts Social history: Patient denies smoking, alcohol, drug use Past Med Surg Social Fam HX 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 Psychiatric history: no psych history - Past Surgical History Surgical History: other Additional surgical history: Brain shunts x 2 - Social History Smoking Status: Never smoker Smokeless Tobacco Status: No Alcohol use: none Drug use: none - Family History Father Adopted: No Family Member Ethnicity: Non- Living Status: Cause of : cancer Hx Family Cardiac Disorders: Yes Hx Family Respiratory Disorders: Yes (Asthma) Hx Family Cancer: Yes Mother Living Status: Cause of : smoking Hx Family Cardiac Disorders: No Hx Family Respiratory Disorders: Yes Hx Family Cancer: Yes Internal Medicine - H&P: Meds Atorvastatin Calcium [Lipitor] 20 mg PO DAILY 09/06/16 [History] Divalproex (12 HR) [Depakote (12 HR)] 500 mg PO BID 09/06/16 [History] Insulin ASPART [NovoLOG] 7 - 13 unit SQ TIDWM 09/06/16 [History] Insulin Glargine [Lantus] 20 units SQ DAILY 09/06/16 [History] Blood Sugar Diagnostic, Drum [Accu-Chek Compact Plus Strips] 1 each ACHS #120 strip 01/19/17 [Rx] Blood-Glucose Meter, Drum-Type [Accu-Chek] 1 each ACHS #1 kit 01/19/17 [Rx] Lancets 1 each ACHS #120 each 01/19/17 [Rx] Phos-NaK [Neutra-Phos] 1 each PO DAILY #7 powd.pack 12/24/17 [Rx] Levothyroxine [Synthroid] 50 mcg PO DAILY 02/20/18 [History] Lisinopril [Zestril] 5 mg PO DAILY 02/20/18 [History] Allergy/AdvReac Type Severity Reaction Status Date / Time No Known Allergies Allergy Verified 10/18/17 00:22 All Systems PM: A 10-system review of systems was performed and is negative for pertinent findings except as documented above in the HPI. Review of systems: - Constitutional: Denies fevers, chills, weight loss, generalized fatigue - EENT: Denies vision changes/blurriness, tinnitus, auditory changes, rhinorrhea, congestion, sore throat, odynaphagia - CVS: Denies chest pain, palpitations, JAMIL, orthopnea, edema, PND, - Pulm: Admits to shortness of breath. Denies cough, sputum, hematemesis, wheezing - GI: Denies abdominal pain, anorexia, nausea, vomiting, diarrhea, constipation, melena - : Denies dysuria, increased frequency, urgency, hematuria, - Heme: Denies ease of bleeding or bruising - MSK: Admits to back pain. Denies joint pain, limited ROM - Skin: Denies rashes, ulcers, color changes, - Neuro: Denies JONES, paresthesias, focal deficits, ataxia, - Constitutional Vitals: Temp Pulse Resp BP Pulse Ox 98 F 110 18 104/71 98 02/21/18 00:02 02/21/18 00:02 02/21/18 00:02 02/21/18 00:02 02/21/18 00:02 Exam: Gen.: Vitals noted. No acute distress. AAOx3, resting comfortably in bed. HEENT: Blind. oropharynx clear, Normocephalic, atraumatic, MMM Cardiac: RRR, no murmur, +S1/S2, No BLE edema. Mildly tachycardic Pulmonary: CTA bilaterally, no wheezes, rales or rhonchi, equal chest expansion, unlabored breathing Abdomen: soft, mildly tender to palpation in epigastric region, BS noted, no guarding, no palpable HSM Skin: warm and dry, no visible lesions. MSK: ROM intact, no joint swelling noted, gait no assessed while in bed. Non tender calf or clubbing Neuro: A&Ox3, moves all extremities, no focal deficits, sensation intact Psych: Appropriate mood and behavior, AOx3 Internal Med - H&P Results - Labs CBC & Chem 7: 02/21/18 01:55 02/21/18 01:55 Labs: Short CBC 02/21/18 Range/Units 01:55 WBC 9.6 (4.3-11.1) K/mcL Hgb 11.0 L D (12.9-16.9) g/dL Hct 31.8 L (37.5-50.1) % Plt Count 190 (140-400) K/mcL BMP 02/21/18 01:55 Sodium 142 Potassium 3.7 Chloride 109 H Carbon Dioxide 25 BUN 14 Creatinine 0.97 Glucose 251 H Calcium 10.3 Liver Function 02/21/18 Range/Units 01:55 Total Bilirubin 0.4 (0.3-1.0) mg/dL AST 9 L (13-39) Units/L ALT 11 (7-52) Units/L Alkaline Phosphatase 93 (34-104) Units/L Albumin 4.3 (3.5-5.7) g/dL - Assessment and plan (1) Type 1 diabetes mellitus with hyperosmolarity without nonketotic hyperglycemic hyperosmolar coma Current Visit: Yes Status: Acute Assessment and plan: - Known history of poorly controlled type 1 DM - Multiple admissions in the past for DKA/HHS - Patient admits to poor compliance - Does not appear to be infectious trigger, but will obtain CXR to rule out pulmonary cause - Per EMS, also drank copious Baltazar-Aid today - BS on presentation of 1143 - AG of 16 on presentation, however also lactic acid of 7.7 - ABG in [place] was not significantly acidic at 7.36. Bicarb of 23 Plan - DKA/HHS protocol - q4 hr BMP - q1hr glucose - Most recent glucose of 251. On insulin gtt. Will transition to subcutaneous insulin after able to eat and glucose drops <250 - K of 3.7, will put fluids of 0.45NS with 20 mEq of K per protocol - Advised better control of diet and medications to patient. (2) Lactic acidosis due to diabetes mellitus Current Visit: Yes Status: Acute Assessment and plan: - Lactic acid of 7.7 on presentation to [facility] ED - Trended to 8.0/4.1 most recently. - likely a result of HHS and tissue hypoperfusion - Receiving fluids per DKA protocol - Will continue to trend - Unlikely infectious etiology, meets 1/4 SIRS criteria. WIll not start abx (3) Anemia Current Visit: Yes Status: Chronic Assessment and plan: - at baseline levels of 11.0 today - baseline 10-11 - No signs of bleed - Continue to monitor Qualifiers: Anemia type: unspecified type Qualified Code(s): D64.9 - Anemia, unspecified (4) Diabetes mellitus type 1 Current Visit: Yes Status: Chronic Assessment and plan: as above for [facility] Qualifiers: Diabetes mellitus complication status: with ophthalmic complications Diabetes mellitus complication detail: with diabetic retinopathy Diabetic retinopathy severity: with unspecified retinopathy severity Diabetes mellitus macular edema: macular edema presence unspecified Laterality: right Qualified Code(s): E10.319 - Type 1 diabetes mellitus with unspecified diabetic retinopathy without macular edema (5) History of seizure disorder Current Visit: Yes Status: Chronic Assessment and plan: - Continue home meds - patient reports last seizure was many years ago (6) Hypertension Current Visit: Yes Status: Chronic Assessment and plan: - Well controlled - 124/69 - Will continue home antihypertensives Qualifiers: Hypertension type: essential hypertension Qualified Code(s): I10 - Essential (primary) hypertension (7) DVT prophylaxis Current Visit: Yes Status: Acute Assessment and plan: - SubQ heparin - Time Spent With Patient Total time spent is greater than 50% in coordination of care (as documented) at patient's floor/unit and/or counseling patient: <Osiel Solorzano - Last Filed: 02/21/18 04:45> Date of Encounter: 02/21/18 Internal Medicine - H&P: HPI History of present illness: Mr. Rodríguez is a 53 year old male All Systems PM: A 10-system review of systems was performed and is negative for pertinent findings except as documented above in the HPI. - Constitutional Vitals: Temp Pulse Resp BP Pulse Ox 98 F 106 18 124/69 100 02/21/18 03:13 02/21/18 03:13 02/21/18 03:13 02/21/18 03:13 02/21/18 03:13 Internal Med - H&P Results - Labs CBC & Chem 7: 02/21/18 01:55 02/21/18 01:55 Labs: Short CBC 02/21/18 Range/Units 01:55 WBC 9.6 (4.3-11.1) K/mcL Hgb 11.0 L D (12.9-16.9) g/dL Hct 31.8 L (37.5-50.1) % Plt Count 190 (140-400) K/mcL BMP 02/21/18 01:55 Sodium 142 Potassium 3.7 Chloride 109 H Carbon Dioxide 25 BUN 14 Creatinine 0.97 Glucose 251 H Calcium 10.3 Liver Function 02/21/18 Range/Units 01:55 Total Bilirubin 0.4 (0.3-1.0) mg/dL AST 9 L (13-39) Units/L ALT 11 (7-52) Units/L Alkaline Phosphatase 93 (34-104) Units/L Albumin 4.3 (3.5-5.7) g/dL - Time Spent With Patient Total time spent is greater than 50% in coordination of care (as documented) at patient's floor/unit and/or counseling patient: - Attending Attestation I saw and evaluated the patient. I reviewed the residents note, performed my own physical examination and agree with findings and plan as documented in the residents note. Patient seen and examined on 02/21/18. Patient presented to [facility] ER for elevated blood sugars after ingesting Baltazar-aid. Upon arrival here his sugars are much improved. Not in DKA, no anion gap. Patient not non-verbal as originally reported. Feeling better. Will continue insulin drip, and monitor electrolytes. Would like diabetes education to see patient, but not available at this facility.
[2018-02-21] MEDS: *HR* Heparin 5,000 UNIT/ML VIAL SQ SCH ×2 (04:07→18:39)
[2018-02-21] MEDS ORDERED: Dextrose Gel 15 GM/37.5 ML TUBE PO PRN ×3 (06:27→15:31)
[2018-02-21] MEDS ORDERED: D5% in Water 1,000 ML IVC PRN (06:27)
--- NOTE | 2018-02-21 07:23 | Internal Med Progress Note ---
<Kellie Portillo Lewis - Last Filed: 02/21/18 13:39> Hospitalist Progress Note - Encounter Date of Encounter: 02/21/18 Time of Encounter: 13:52 - Subjective Interval History: Patient was eating his breakfast and tolerating it well. He states that he had no problems throughout the night and has no new problems or concerns today. No acute changes in condition. He was alert and communicative. He states that he is feeling slightly tired and has some back pain, but denies dizziness, lightheadedness. He denies any chest pain, difficulty breathing, or shortness of breath. He denies abdominal pain and had a BM this morning. 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 Psychiatric history: no psych history - Past Surgical History Surgical History: other Additional surgical history: Brain shunts x 2 - Social History Smoking Status: Never smoker Smokeless Tobacco Status: No Alcohol use: none Drug use: none - Family History Father Adopted: No Family Member Ethnicity: Non- Living Status: Cause of : cancer Hx Family Cardiac Disorders: Yes Hx Family Respiratory Disorders: Yes (Asthma) Hx Family Cancer: Yes Mother Living Status: Cause of : smoking Hx Family Cardiac Disorders: No Hx Family Respiratory Disorders: Yes Hx Family Cancer: Yes Review of systems: - Constitutional: Denies chills, fever, generalized fatigue - EENT: Denies congestion, odynaphagia - CVS: Denies chest pain, edema, - Pulm: Denies cough, sputum shortness of breath, wheezing - GI: Denies abdominal pain - : Denies dysuria, - Heme: Denies ease of bleeding or bruising - MSK: Admits to back pain. Denies joint pain, limited ROM - Neuro: Denies JONES, dizziness, lightheadedness, - Exam Vitals: Temp Pulse Resp BP Pulse Ox 98 F 106 18 124/69 100 02/21/18 03:13 02/21/18 03:13 02/21/18 03:13 02/21/18 03:13 02/21/18 03:13 Exam: Gen.: Vitals noted. No acute distress. Sitting in bed eating breakfast. HEENT: Blind. Atraumatic, normocephalic. PERRLA and EOMI. Neck is supple and trachea midline. Mucosa moist, external ears normal. Cardiac: RRR, no murmur, No BLE edema. Pulmonary: CTA bilaterally, no wheezes, rales or rhonchi, unlabored breathing Abdomen: soft, BS noted, no guarding, no tenderness. Skin: warm and dry. MSK:gait not assessed while in bed, limited ROM in right upper extremity and right lower extremity. Patient states this is chronic, congenital. Neuro: A&Ox3, moves all extremities Psych: Appropriate mood and behavior - Assessment and Plan (1) Type 1 diabetes mellitus with hyperosmolarity without nonketotic hyperglycemic hyperosmolar coma Current Visit: Yes Status: Acute Assessment and Plan: - Known history of poorly controlled type 1 DM and has had multiple admissions in past for hyperglycemia. -Glucose trending down to 151. POC glucose is 129, IV insulin discontinued. Plan -Contine subcutaneous insulin as patient is eating and glucose has dropped below 250. -Discontinue fluids. -Consult social work about halfway and whether patient is being compliant with prescribed home insulin regimens. -Consider diabetes education for patient. (2) Lactic acidosis due to diabetes mellitus Current Visit: Yes Status: Acute Assessment and Plan: - Lactic acid of 2.4 down from peak of 8.0. - Likely a result of HHS and tissue hypoperfusion - Will continue to trend. (3) DVT prophylaxis Current Visit: Yes Status: Acute Assessment and Plan: -Continue Heparin subcutaneous for DVT prophylaxis (4) Anemia Current Visit: Yes Status: Chronic Assessment and Plan: -Chronic, baseline is 11.0 -Continue to monitor (5) Diabetes mellitus type 1 Current Visit: Yes Status: Chronic Assessment and Plan: -See above plan (6) History of seizure disorder Current Visit: Yes Status: Chronic Assessment and Plan: -Continue prescribed home medications (7) Hypertension Current Visit: Yes Status: Chronic Assessment and Plan: -Well controlled hypertension. -Continue taking prescribed home medications - Time Spent with Patient Total time spent is greater than 50% in coordination of care (as documented) at patient's floor/unit and/or counseling patient: Internal Medicine: Result - Labs CBC & Chem 7: 02/21/18 01:55 02/21/18 10:06 Labs: Short CBC 02/21/18 Range/Units 01:55 WBC 9.6 (4.3-11.1) K/mcL Hgb 11.0 L D (12.9-16.9) g/dL Hct 31.8 L (37.5-50.1) % Plt Count 190 (140-400) K/mcL BMP 02/21/18 01:55 Sodium 142 Potassium 3.7 Chloride 109 H Carbon Dioxide 25 BUN 14 Creatinine 0.97 Glucose 251 H Calcium 10.3 Liver Function 02/21/18 Range/Units 01:55 Total Bilirubin 0.4 (0.3-1.0) mg/dL AST 9 L (13-39) Units/L ALT 11 (7-52) Units/L Alkaline Phosphatase 93 (34-104) Units/L Albumin 4.3 (3.5-5.7) g/dL Consult Discharge Plan - Plan Referrals: NONE,PCP [Primary Care Provider] - <Russ Clark - Last Filed: 02/21/18 15:12> Hospitalist Progress Note - Encounter Date of Encounter: 02/21/18 - Exam Vitals: Temp Pulse Resp BP Pulse Ox 98.9 F 83 15 112/83 100 02/21/18 10:59 02/21/18 10:59 02/21/18 10:59 02/21/18 10:59 02/21/18 03:13 - Assessment and Plan (1) Type 1 diabetes mellitus with hyperosmolarity without nonketotic hy perglycemic hyperosmolar coma Current Visit: Yes Status: Acute (2) Diabetes mellitus type 1 Current Visit: Yes Status: Chronic (3) Hypertension Current Visit: Yes Status: Chronic (4) Hypothyroidism Current Visit: No Status: Chronic (5) Anemia Current Visit: Yes Status: Suspected (6) Lactic acidosis Current Visit: Yes Status: Acute (7) Seizure disorder Current Visit: Yes Status: Chronic - Time Spent with Patient Total time spent is greater than 50% in coordination of care (as documented) at patient's floor/unit and/or counseling patient: Internal Medicine: Result - Labs CBC & Chem 7: 02/21/18 01:55 02/21/18 10:06 Labs: Short CBC 02/21/18 Range/Units 01:55 WBC 9.6 (4.3-11.1) K/mcL Hgb 11.0 L D (12.9-16.9) g/dL Hct 31.8 L (37.5-50.1) % Plt Count 190 (140-400) K/mcL BMP 02/21/18 02/21/18 02/21/18 01:55 06:34 10:06 Sodium 142 141 135 L Potassium 3.7 3.9 5.1 D Chloride 109 H 108 H 103 Carbon Dioxide 25 26 24 BUN 14 13 13 Creatinine 0.97 0.86 0.92 Glucose 251 H 151 H 156 H Calcium 10.3 9.9 9.1 Liver Function 02/21/18 Range/Units 01:55 Total Bilirubin 0.4 (0.3-1.0) mg/dL AST 9 L (13-39) Units/L ALT 11 (7-52) Units/L Alkaline Phosphatase 93 (34-104) Units/L Albumin 4.3 (3.5-5.7) g/dL - Impressions Impressions Chest X-Ray 02/21/18 03:00 IMPRESSION: Left basilar atelectasis versus scarring. Otherwise no new acute cardiopulmonary findings. D/ / Lori Ivory MD / Lori Ivory MD Interpreting Provider: Lori Ivory MD - Attending Attestation The history, physical exam, and medical decision making was performed by the medical student either while I was physically present and actively involved or I personally re-performed the exam and medical decision making. I have verified the accuracy of the medical student's documentation with regards to the history, physical exam findings, and medical decision making on 02/21/18. Mr Rodríguez is currently admitted for acute HHS and uncontrolled DM. He remains moderate to high risk due to potential for worsening clinical status. Mr Rodríguez is now off insulin drip. Denies pain at this time. No fever or chills. No CP or SOB. Ate some breakfast. No nausea or vomiting. Exam alert Comfortable at this time Mucus membranes dry Heart reg and not tachy currently Lungs diminished. Some rhonchi heard bilaterally Abd soft and nontender No edema I/P 1. HHS - resolved. Pt lives with niece who manages his sugars. Will have social work check with her regarding care at home and patient's compliance with treatment. 2. Legally blind 3. Lactic acidosis - related to hypoperfusion from volume depletion. Slowly improving. 4. Seizure disorder - no symptoms now 5. Anemia - appears to be chronic disease 6. HTN - controlled at this time. Further diagnoses and plan as above. <Kellie Portillo A - Last Filed: 02/21/18 13:39> (4) Anemia Qualifiers: Anemia type: unspecified type Qualified Code(s): D64.9 - Anemia, unspecified (5) Diabetes mellitus type 1 Qualifiers: Diabetes mellitus complication status: with ophthalmic complications Diabetes mellitus complication detail: with diabetic retinopathy Diabetic retinopathy severity: with unspecified retinopathy severity Diabetes mellitus macular edema: macular edema presence unspecified Laterality: right Qualified Code(s): E10.319 - Type 1 diabetes mellitus with unspecified diabetic retinopathy without macular edema (7) Hypertension Qualifiers: Hypertension type: essential hypertension Qualified Code(s): I10 - Essential (primary) hypertension <Russ Clark A - Last Filed: 02/21/18 15:12> (2) Diabetes mellitus type 1 Qualifiers: Diabetes mellitus complication status: with ophthalmic complications Diabetes mellitus complication detail: with diabetic retinopathy Diabetic retinopathy severity: with unspecified retinopathy severity Diabetes mellitus macular edema: macular edema presence unspecified Laterality: right Qualified Code(s): E10.319 - Type 1 diabetes mellitus with unspecified diabetic retinopathy without macular edema (3) Hypertension Qualifiers: Hypertension type: essential hypertension Qualified Code(s): I10 - Essential (primary) hypertension (4) Hypothyroidism Qualifiers: Hypothyroidism type: acquired Qualified Code(s): E03.9 - Hypothyroidism, unspecified (5) Anemia Qualifiers: Anemia type: other cause Other causes of anemia: chronic disease, other Qualified Code(s): D63.8 - Anemia in other chronic diseases classified elsewhere
[2018-02-21] MEDS: *HR* HYDROcodone/Acet 5/325 mg TABLET PO PRN ×2 (08:00→15:04)
[2018-02-21] MEDS: Insulin DETEMIR 100 UNIT/ML X5UNITS SQ SCH ×2 (08:00→20:17)
[2018-02-21 09:34] LABS: BUN/Creatinine Ratio 15 (6-26); Blood Urea Nitrogen 13 mg/dL (6-20); Calcium 9.9 mg/dL (8.6-10.3); Carbon Dioxide 26 mEq/L (23-29); Chloride 108 mEq/L (98-107); Glucose 151 mg/dL (70-105); Magnesium 1.9 mg/dL (1.6-2.6); Osmolality,Calculated 295 (280-300); Potassium 3.9 mEq/L (3.5-5.1); Sodium 141 mEq/L (136-145); eGFR For Non-African Americans > 60 (> 60)
[2018-02-21 09:42] LABS: Estimated Average Glucose 286 mg/dl; Hemoglobin A1C 11.6 %
[2018-02-21 10:57] LABS: BUN/Creatinine Ratio 14 (6-26); Blood Urea Nitrogen 13 mg/dL (6-20); Calcium 9.1 mg/dL (8.6-10.3); Carbon Dioxide 24 mEq/L (23-29); Chloride 103 mEq/L (98-107); Glucose 156 mg/dL (70-105); Osmolality,Calculated 283 (280-300); Potassium 5.1 mEq/L (3.5-5.1); Sodium 135 mEq/L (136-145); eGFR For Non-African Americans > 60 (> 60)
[2018-02-21 15:21] LABS: BUN/Creatinine Ratio 13 (6-26); Blood Urea Nitrogen 12 mg/dL (6-20); Calcium 9.1 mg/dL (8.6-10.3); Carbon Dioxide 24 mEq/L (23-29); Chloride 97 mEq/L (98-107); Glucose 174 mg/dL (70-105); Osmolality,Calculated 270 (280-300); Potassium 4.1 mEq/L (3.5-5.1); Sodium 128 mEq/L (136-145); eGFR For Non-African Americans > 60 (> 60)
[2018-02-21] MEDS: Insulin LISPRO 300 UNITS/3 ML VIAL SQ SCH ×3 (17:39→21:49)
[2018-02-21 18:31] LABS: BUN/Creatinine Ratio 13 (6-26); Blood Urea Nitrogen 11 mg/dL (6-20); Calcium 9.1 mg/dL (8.6-10.3); Carbon Dioxide 29 mEq/L (23-29); Chloride 96 mEq/L (98-107); Glucose 176 mg/dL (70-105); Osmolality,Calculated 272 (280-300); Potassium 4.1 mEq/L (3.5-5.1); Sodium 129 mEq/L (136-145); eGFR For Non-African Americans > 60 (> 60)
[2018-02-21 22:24] LABS: BUN/Creatinine Ratio 13 (6-26); Blood Urea Nitrogen 12 mg/dL (6-20); Carbon Dioxide 27 mEq/L (23-29); Chloride 98 mEq/L (98-107); Glucose 290 mg/dL (70-105); Osmolality,Calculated 284 (280-300); Sodium 132 mEq/L (136-145); eGFR For Non-African Americans > 60 (> 60)
[2018-02-22] MEDS: *HR* Heparin 5,000 UNIT/ML VIAL SQ SCH ×2 (05:48→17:33)
[2018-02-22] MEDS: Insulin LISPRO 300 UNITS/3 ML VIAL SQ SCH ×7 (08:34→19:42)
--- NOTE | 2018-02-22 09:57 | Discharge Summary ---
<Leilani Billings - Last Filed: 02/22/18 09:53> - NOTES TO OUTPATIENT PROVIDER Notes to Outpatient Provider: Patient would benefit from diabetic nutritional education. Date of Encounter: 02/22/18 Time of Encounter: 09:53 - Discharge Diagnosis (1) Uncontrolled type 1 diabetes mellitus with hyperosmolarity, with long-term current use of insulin Priority: Primary Status: Acute Assessment and Plan: home sugars run "300s, 400s, [too high for glucometer to read]" (2) Lactic acidosis Priority: Primary Status: Resolved (3) Hypertension Priority: Secondary Status: Chronic Qualifiers: Hypertension type: essential hypertension Qualified Code(s): I10 - Essential (primary) hypertension (4) Seizure disorder Priority: Secondary Status: Chronic (5) Anemia Priority: Secondary Status: Chronic Qualifiers: Anemia type: other cause Other causes of anemia: chronic disease, other Qualified Code(s): D63.8 - Anemia in other chronic diseases classified elsewhere Hospital course: Mr. Rodríguez is a 53 year old male with uncontrolled type 1 diabetes admitted for hyperglycemia and hyperosmolarity without ketosis or diabetic coma. Glucose 1143 on presentation to ER: also lactic acidosis 7.7. He was treated with the DKA/HHS protocol and his sugars quickly lowered, he was then transitioned back to SQ insulin. A1C 11.6. On the day of discharge, he states he is concerned about "getting in to the sweets" again - his niece who lives with him makes him padmini aid. He was educated about sugar free padmini aid as an alternative. Discharge discussed with: patient - Time Spent with Patient Total time spent providing and/or coordinating discharge services: - Discharge Medications Home Medications: Atorvastatin Calcium [Lipitor] 20 mg PO DAILY 09/06/16 [History] Divalproex (12 HR) [Depakote (12 HR)] 500 mg PO BID 09/06/16 [History] Insulin ASPART [NovoLOG] 7 - 13 unit SQ TIDWM 09/06/16 [History] Insulin Glargine [Lantus] 20 units SQ DAILY 09/06/16 [History] Blood Sugar Diagnostic, Drum [Accu-Chek Compact Plus Strips] 1 each [facility] #120 strip 01/19/17 [Rx] Blood-Glucose Meter, Drum-Type [Accu-Chek] 1 each ACHS #1 kit 01/19/17 [Rx] Lancets 1 each [facility] #120 each 01/19/17 [Rx] Phos-NaK [Neutra-Phos] 1 each PO DAILY #7 powd.pack 12/24/17 [Rx] Levothyroxine [Synthroid] 50 mcg PO DAILY 02/20/18 [History] Lisinopril [Zestril] 5 mg PO DAILY 02/20/18 [History] Allergies/Adverse Reactions: Allergy/AdvReac Type Severity Reaction Status Date / Time No Known Allergies Allergy Verified 10/18/17 00:22 Date of admission: 02/21/18 00:28 Primary care physician: PCP NONE Consults: 02/21/18 00:21 Consult to Pastoral Services [CONS] Routine Comment: Consult to [employer] [CONS] Routine Reason for SW Consult: Potential for placement in shelter Discharging clinician: Leilani Billings Anticipated date of discharge: 02/22/18 - Constitutional Vitals: Temp Pulse Resp BP Pulse Ox 97.8 F 59 18 113/69 94 02/22/18 06:20 02/22/18 08:00 02/22/18 06:20 02/22/18 06:20 02/22/18 06:20 Exam: Gen.: Vitals noted. No acute distress. HEENT: Blind. Atraumatic, normocephalic. PERRLA and EOMI. Neck is supple and trachea midline. Mucosa moist, external ears normal. Cardiac: RRR, no murmur, No BLE edema. Pulmonary: CTAB. Abdomen: soft, BS noted, no guarding, no tenderness. Skin: warm and dry. MSK:limited ROM in right upper extremity and right lower extremity (chronic, congenital). Neuro: A&Ox3, moves all extremities Psych: Appropriate mood and behavior - Patient Status Disposition: Home, Self-Care Condition: Good Functional capacity at discharge: uses cane/walker Overall status at discharge: patient is back to baseline - Discharge Instructions Follow Up With: NONE,PCP [Primary Care Provider] - - Diet and Activity Diet: diabetic diet <Russ Clark - Last Filed: 02/22/18 14:53> Date of Encounter: 02/22/18 - Discharge Diagnosis (1) Diabetes mellitus type 1 Priority: Secondary Status: Chronic Qualifiers: Diabetes mellitus complication status: with ophthalmic complications Diabetes mellitus complication detail: with diabetic retinopathy Diabetic retinopathy severity: with unspecified retinopathy severity Diabetes mellitus macular edema: macular edema presence unspecified Laterality: right Qualified Code(s): E10.319 - Type 1 diabetes mellitus with unspecified diabetic retinopathy without macular edema (2) Hypertension Status: Chronic Qualifiers: Hypertension type: essential hypertension Qualified Code(s): I10 - Essential (primary) hypertension (3) Hypothyroidism Priority: Secondary Status: Chronic Qualifiers: Hypothyroidism type: acquired Qualified Code(s): E03.9 - Hypothyroidism, unspecified (4) Anemia Status: Chronic Qualifiers: Anemia type: other cause Other causes of anemia: chronic disease, other Qualified Code(s): D63.8 - Anemia in other chronic diseases classified elsewhere (5) Lactic acidosis Status: Resolved (6) Seizure disorder Status: Chronic (7) Uncontrolled type 1 diabetes mellitus with hyperosmolarity, with long-term current use of insulin Status: Acute Hospital course: Mr. Rodríguez is a 53 year old male - Time Spent with Patient Total time spent providing and/or coordinating discharge services: Date of admission: 02/21/18 00:28 Primary care physician: PCP NONE Consults: 02/21/18 00:21 Consult to Pastoral Services [CONS] Routine Comment: Consult to [employer] [CONS] Routine Reason for SW Consult: Potential for placement in shelter - Constitutional Vitals: Temp Pulse Resp BP Pulse Ox 98.7 F 67 17 106/59 95 02/22/18 10:58 02/22/18 10:58 02/22/18 10:58 02/22/18 10:58 02/22/18 10:58 - Attending Attestation I examined this patient and my medical decision-making was reviewed with the Resident Physician on 02/22/18. I agree with the documented findings, disposition and treatment plan as described except to the extent set forth below. Mr Rodríguez has been in observation due to HHS. He has improved with insulin and fluids. He is now afebrile and tolerating diet. He is ready for discharge home - needs further education in reference to sugar/diet. Exam Alert Comfortable Mucus membranes dry Heart reg and not tachy No wheeze abd soft and nontender No edema Moves all extremities. Plan D/C home today Diet instruction for him and family. Addendum entered and electronically signed by Russ Clark DO 02/23/18 17:00: Pt was actually discharged on 02/23/18
[2018-02-22] MEDS ORDERED: *HR* Dextrose 50 % in Water (Syg) 50 ML SYRINGE ONE (17:27)
[2018-02-22] MEDS: Insulin DETEMIR 100 UNIT/ML X5UNITS SQ SCH (19:40)
[2018-02-23] MEDS: *HR* Heparin 5,000 UNIT/ML VIAL SQ SCH (03:42)
[2018-02-23] MEDS: Insulin LISPRO 300 UNITS/3 ML VIAL SQ SCH ×4 (08:32→12:56)
[2018-02-23 11:38] VITALS: BP 108/65
--- NOTE | 2018-02-23 13:14 | Internal Med Progress Note ---
<Bismark Kamara - Last Filed: 02/23/18 14:26> Hospitalist Progress Note - Encounter Date of Encounter: 02/23/18 Time of Encounter: 13:12 - Subjective Interval History: Mr Rodríguez has no acute complaints this morning. I informed him we would discharge him today now that hisblood sugars are stable.He stated he understood and agr eed, and just requested that I call his niece. - Exam Vitals: Temp Pulse Resp BP Pulse Ox 98.6 F 81 18 108/65 100 02/23/18 11:33 02/23/18 11:33 02/23/18 11:33 02/23/18 11:33 02/23/18 11:33 Exam: Gen.: Vitals noted. No acute distress. HEENT: Blind. Atraumatic, normocephalic. PERRLA and EOMI. Neck is supple and trachea midline. Mucosa moist, external ears normal. Cardiac: RRR, no murmur, No BLE edema. Pulmonary: CTAB. Abdomen: soft, BS noted, no guarding, no tenderness. Skin: warm and dry. MSK:limited ROM in right upper extremity and right lower extremity (chronic, congenital). Neuro: A&Ox3, moves all extremities Psych: Appropriate mood and behavior - Assessment and Plan (1) Hypertension Status: Chronic Assessment and Plan: Discharge on home medications (2) Anemia Status: Chronic Assessment and Plan: Chronic and stable (3) Lactic acidosis Status: Resolved Assessment and Plan: Secondary to HHS, resolved (4) Seizure disorder Status: Chronic Assessment and Plan: Chronic, on depakote, continue depakote (5) Uncontrolled type 1 diabetes mellitus with hyperosmolarity, with long-term c urrent use of insulin Status: Acute Assessment and Plan: Patient was admitted for hyperglycemia secondary to uncontrolled DM Uncontrolled due to issues with diet compliance Hyperglycemia was quickly resolved with insulin therapy Patient and senior software engineer analytics niece were educated on diet Patient became hypoglycemic yesterday Mealtime insulin was decreased to 7 units TIDWM Glucose normalized today, patient stable for discharge Patient stable for discharge on insulin therapy - Time Spent with Patient Total time spent is greater than 50% in coordination of care (as documented) at patient's floor/unit and/or counseling patient: Internal Medicine: Result - Labs CBC & Chem 7: 02/21/18 01:55 02/21/18 21:55 Consult Discharge Plan - Plan Instructions: Hyperosmolar Hyperglycemic State (DC) Additional Instructions: Follow-up appointments: If there is not an appointment listed below, please call your physician and schedule a follow-up appointment. If you have congestive heart failure and your symptoms return, make an appointment with your physician. Medication List: Carry an up to date list of medications you are taking at all time. We have given you an updated medication list including any new medications that you have been prescribed. Please provide that list to your primary provider Symptoms: If your condition changes or you experience any of the following symptoms, notify your physician immediately: Unusual or worsening pain, fever, persistent nausea and vomiting, bleeding, increase in swelling (especially in your legs), sudden weight gain, extreme dizziness, chest pain, increased drainage or redness from a wound or incision. Go to the emergency department if you experience a problem with breathing. Weights: If you have a history of swelling or shortness of breath, weigh yourself daily and notify your physician if you have a weight gain of two or more pounds in one day or 5 or more pounds in a week. If you experience any of the warning signs for stroke: Sudden numbness or weakness of the face, arm or leg; especially on one side of the body, sudden confusion, trouble speaking or understanding, sudden trouble seeing in one or both eyes, sudden trouble walking, dizziness, loss of balance or coordination, sudden sever headache with no cause; Call 911 or go to the emergency room. Stroke is a medical emergency. Some risk factors for stroke: Age, cigarette smoking, diabetes, excessive alcohol consumption, family history, high blood pressure, overweight, physical inactivity, prior stroke, heart attac k, diagnosis of carotid artery stenosis or other artery disease. If you smoke, STOP: Smoking or tobacco use significantly increases your risk of heart and lung disease. Your chance of disease greatly increases if you continue to smoke. For more information, call the [place] tobacco quit line for smoking cessation 5-866-GKGB-NOW ( ) [facility] [Other[facility] (I left a message for them to call this patient at home with a follow up appointment. If they don't call withing 2 days call them for an appointment) Prescriptions: Insulin ASPART [NovoLOG] 7 unit SQ TIDWM 30 Days #1 mls <Russ Clark - Last Filed: 02/23/18 17:00> Hospitalist Progress Note - Encounter Date of Encounter: 02/23/18 - Exam Vitals: Temp Pulse Resp BP Pulse Ox 98.6 F 82 18 108/65 100 02/23/18 11:33 02/23/18 14:00 02/23/18 11:33 02/23/18 11:33 02/23/18 11:33 - Assessment and Plan (1) Hypertension Status: Chronic (2) Anemia Status: Chronic (3) Lactic acidosis Status: Resolved (4) Seizure disorder Status: Chronic (5) Uncontrolled type 1 diabetes mellitus with hyperosmolarity, with long-term current use of insulin Status: Acute (6) Hypothyroidism Status: Chronic - Time Spent with Patient Total time spent is greater than 50% in coordination of care (as documented) at patient's floor/unit and/or counseling patient: Internal Medicine: Result - Labs CBC & Chem 7: 02/21/18 01:55 02/21/18 21:55 - Attending Attestation I examined this patient and my medical decision-making was reviewed with the Resident Physician on 02/23/18. I agree with the documented findings, disposition and treatment plan as described except to the extent set forth below. Mr Rodríguez is currently admitted for [facility]. His discharge was held yesterday due to hypoglycemia. His sugars are more stable today and he is ready for discharge. Exam Alert Comfortable Mucus membranes dry Heart reg No wheeze abd soft and nontender No edema I/P 1. Hypoglycemia - resolved 2. HHS - resolved 3. DM Further diagnoses and plan as above. <Bismark Kamara - Last Filed: 02/23/18 14:26> (1) Hypertension Qualifiers: Hypertension type: essential hypertension Qualified Code(s): I10 - Essential (primary) hypertension (2) Anemia Qualifiers: Anemia type: other cause Other causes of anemia: chronic disease, other Qualified Code(s): D63.8 - Anemia in other chronic diseases classified elsewhere <Russ Clark - Last Filed: 02/23/18 17:00> (1) Hypertension Qualifiers: Hypertension type: essential hypertension Qualified Code(s): I10 - Essential (primary) hypertension (2) Anemia Qualifiers: Anemia type: other cause Other causes of anemia: chronic disease, other Qualified Code(s): D63.8 - Anemia in other chronic diseases classified elsewhere (6) Hypothyroidism Qualifiers: Hypothyroidism type: acquired Qualified Code(s): E03.9 - Hypothyroidism, unspecified
[2018-02-23] MEDS ORDERED: Divalproex (12 HR) 500 MG TABLET PO SCH (14:00)
== END 2018-02-23 16:40 | disposition home or self-care (01) ==
LOC: 2NNU → SUATTDRO 02-21 00:28
PROVIDERS: ADMIT Family Medicine; ATTEND Internal Medicine